=== PATIENT | female | born 1965 | race Caucasian/White ===

== ENCOUNTER 2024-04-08 03:58 | Day surgery (SDC) | payer BC ==
[2024-04-06 14:55] VITALS: BMI 29.2
[2024-04-08 07:23] VITALS: RESP 16
[2024-04-08] MEDS ORDERED: ACETAMINOPHEN 500 MG TABLET (FP) PO PRN (09:14)
[2024-04-08 09:48] VITALS: BP 112/49; PULSE 64; TEMP 97.6
== END 2024-04-08 10:16 | disposition home or self-care (01) ==
LOC: JASU-SURG 03:58
PROVIDERS: ATTEND Pain Medicine Pain Medicine
PROC: 3E0T3BZ Introduction of Anesthetic Agent into Peripheral Nerves and Plexi, Percutaneous Approach (ICD-10-PCS; principal; 2024-04-08 09:25)
DX: M47.816 Spondylosis without myelopathy or radiculopathy, lumbar region (principal)
CPT/HCPCS: 76000-TC-FY